=== PATIENT | female | born 1935 | race Hispanic/Latino ===

== ENCOUNTER 2023-01-04 08:59 | Day surgery (SDC) | payer OTHER ==
[~2023-01-04] VITALS: Ht 165.1 cm; Wt 77.1 kg
[2023-01-04] VITALS (14 sets, daily range): BP systolic 88–138; BP diastolic 53–72; PULSE 71–86; RESP 12–20
[~2023-01-04 08:59] MED LIST: 0.9%NACL 1000ML 1,000 ML IV ONE
[2023-01-04] MEDS ORDERED: PROPOFOL 10 MG/ML 20ML VIAL IV ONE (09:59)
== END 2023-01-04 11:45 | disposition home or self-care (01) ==
LOC: DAH 08:59 → ENDO 08:59
PROVIDERS: ATTEND Internal Medicine Gastroenterology
DX: K92.1 Melena (principal); K29.50 Unspecified chronic gastritis without bleeding; R12 Heartburn; R68.81 Early satiety; Z80.9 Family history of malignant neoplasm, unspecified
CPT/HCPCS: 43239; J7030 ×2; J2704; A4620; A4215 ×2; A7002; A4222; A4221; A4663; A4606; J3490

== ENCOUNTER 2023-08-28 11:28 | Emergency (ER) | payer MEDICARE, OTHER ==
[~2023-08-28] VITALS: Ht 160 cm; Wt 72.1 kg
[2023-08-28 12:27] LABS: BASOPHILS # (AUTO) 0.03 K/uL (0.00-0.20); BASOPHILS % (AUTO) 0.4 % (0.0-5.0); EOSINOPHILS # (AUTO) 0.12 K/uL (0.00-0.70); EOSINOPHILS % (AUTO) 1.5 % (0.0-8.0); HEMATOCRIT 39.4 % (36-48); IMMATURE GRANULOCYTE ABSOLUTE 0.02 K/uL (0-1); LYMPHOCYTES # (AUTO) 1.3 K/uL (1.0-4.8); LYMPHOCYTES % (AUTO) 15.2 % (21.0-51.0); MEAN CORPUSCULAR HEMOGLOBIN 27.3 pg (27.0-33.0); MEAN CORPUSCULAR VOLUME 85.3 fL (79-99); MONOCYTES # (AUTO) 0.9 K/uL (0.1-1.0); MONOCYTES % (AUTO) 11.1 % (3.0-13.0); NEUTROPHILS # (AUTO) 5.9 K/uL (1.8-7.7); NEUTROPHILS % (AUTO) 71.6 % (40.0-77.0); PLATELET COUNT (AUTO) 219 K/uL (130-400); RED BLOOD CELL COUNT(AUTO) 4.62 MIL/uL (4.00-5.50); RED CELL DISTRIBUTION WIDTH 15.7 % (11.0-15.5); WHITE BLOOD COUNT (AUTO) 8.2 K/uL (4.8-10.8)
[2023-08-28 12:44] LABS: ALBUMIN 3.4 g/dL (3.5-5.0); BILIRUBIN,TOTAL 1.2 mg/dL (0.2-1.0); CREATININE 0.7 mg/dL (0.5-1.0); POTASSIUM 4.4 mmol/L (3.5-5.1); TOTAL PROTEIN, SERUM 7.6 g/dL (6.0-8.3)
[2023-08-28 13:11] LABS: B-TYPE NATRIURETIC PEPTIDE 284 pg/mL (0-100)
[2023-08-28] MEDS: FUROSEMIDE 40MG VIAL IV ONE (14:24)
[2023-08-28 14:27] LABS: APPEARANCE,URINE CLEAR (CLEAR); BILIRUBIN,URINE NEGATIVE (NEGATIVE); COLOR,URINE LIGHT-YELLOW (YELLOW); GLUCOSE, URINE (UA) NEGATIVE (NEGATIVE); KETONES,URINE NEGATIVE (NEGATIVE); LEUKOCYTE ESTERASE ,URINE 25 Leu/uL (NEGATIVE); NITRATE,URINE NEGATIVE (NEGATIVE); OCCULT BLOOD,URINE NEGATIVE (NEGATIVE); PROTEIN,URINE 10 mg/dL (NEGATIVE); UROBILINOGEN,URINE 0.2 mg/dL (0.2-1.0)
[2023-08-28 14:33] LABS: ADD UA MICROSCOPIC YES
[2023-08-28 14:39] LABS: BACTERIA,URINE RARE /HPF (None Seen); MUCUS,URINE RARE LPF (None Seen); OTHER CASTS, URINE 1 /LPF (None Seen); SQUAMOUS EPITHELIAL CELL,UR RARE /HPF (0-2)
[2023-08-28] MEDS ORDERED: FURO40TA5 PO (14:56)
[2023-08-28] MEDS ORDERED: POTA-192 PO (14:56)
[2023-08-28 14:58] VITALS: BP 144/78; PULSE 83; RESP 18; O2SAT 99
== END 2023-08-28 15:34 | disposition home or self-care (01) ==
LOC: EDH 11:28
DX: I50.9 Heart failure, unspecified (principal); I51.7 Cardiomegaly; Z79.899 Other long term (current) drug therapy; Z98.890 Other specified postprocedural states
CPT/HCPCS: 99285; 96374; 71045; 83735; 84484; 80053; 83880; 85025; 87086; 81001; 36415; 93005; J1940

== ENCOUNTER 2024-03-15 11:26 | Emergency (ER) | payer MEDICARE ==
[~2024-03-15] VITALS: Ht 160 cm; Wt 72.6 kg
[~2024-03-15 11:26] MED LIST changes: -0.9%NACL 1000ML 1,000 ML IV ONE; +FURO40TA5 PO; +POTA-192 PO
[2024-03-15] MEDS ORDERED: AMOX1TAB16 PO (12:09)
--- NOTE | 2024-03-15 12:09 | ERN ---
ED Note History of Present Illness Stated Complaint: BIT BY RAT ON RIGHT FOOT Chief Complaint: Animal Bite Dictation: 89-year-old female presented to the ER after seen animals/rats biting her right toes. As per reports from family there were told by the provided that there was bloody in the patient bed. Allergies: Coded Allergies: No Known Drug Allergies (Unverified Allergy, Unknown, 01/03/23) Home Meds Active Scripts Amoxicillin/Potassium Clav (Amox Tr-K Clv 875-125 mg Tab) 875 Mg-125 Mg Tablet, 1 TAB PO BID for 7 Days, #14 TAB 0 Refills Prov:ANDRE ECHEVARRIA MD 03/15/24 Furosemide (Furosemide) 40 Mg Tablet, 40 MG PO DAILY for 5 Days, #5 TAB Prov:ROBINSON LINCOLN NP 08/28/23 Potassium Chloride (K-Dur/Klor-Con) 20 Meq Ertab, 20 MEQ PO DAILY for 10 Days, #10 TAB.EC Prov:ROBINSON LINCOLN NP 08/28/23 Past Medical History Past Medical History: No Pertinent History Surgical History: Other, None History: Not Applicable Review of System Dictation NEGATIVE EXCEPT PER HPI Constitutional: Negative for fever,chills, and weight loss Eyes: Negative for injury, pain,redness, and discharge ENT: Negative for injury,pain or swelling Cardiovascular: denies chest pain, palpitations, and edema Respiratory: Negative for shortness of breath, cough, and wheezing, Abdomen/GI: Negative for abdominal pain, nausea, vomiting, diarrhea, and constipation Back: Negative for injury and pain : Negative for injury, bleeding and discharge MS/Extremity: Negative for injury and deformity Skin: Left toes positive for Neuro: Negative for headache, weakness, numbness, tingling, and seizure Psych: Negative for suicide ideation, homicidal ideation, and hallucinations Initial Vital Sign VS Vital Signs Date Time Temp Pulse Resp B/P (MAP) Pulse Ox O2 Delivery O2 Flow Rate FiO2 03/15/24 11:59 98.4 83 16 128/86 98 Room Air 03/15/24 12:18 0 21 Physical Exam Dictation General: awake, alert, NAD Head/Face: Normocephalic, atraumatic Eyes: PERRL, EOMI, vision at baseline ENT: oral cavity clear, TMs clear, no signs of infection Neck: Trachea midline, supple, no nuchal rigidity Cardiovascular: RRR, normal S1/S2, No MRGs, no JVD Respiratory: CTAB, no respiratory distress, No rales or wheezes Abdomen: Soft , no tender Skin: Left toe covered with a dry blood. MS/Extremity: Pulses equal, no cyanosis, neurovascular intact, FROM Neuro: COAx4, GCS 15, strength 5/5, CN 2-12 intact, normal cerebellar exam, normal gait, Psych: Normal behavior, mood, and affect normal ED Course ED Course Orders Procedure Category Date Status Time Tetanus,Diphtheria PHA 03/15/24 Complete Tox [Adult] (Diphther 12:30 Current Medications Medications (Trade) Dose Ordered Sig/Ced Route PRN Reason Start Time Stop Time Status Last Admin Dose Admin Tetanus/ Diphtheria Toxoids Adsorbed (DiphthERIA-teTANUS TOXOID [ADULT]/ DECAVAC) 0.5 ml ONCE ONCE IM 03/15/24 12:30 03/15/24 12:31 DC 03/15/24 12:51 Vital Signs Date Time Temp Pulse Resp B/P (MAP) Pulse Ox O2 Delivery O2 Flow Rate FiO2 03/15/24 12:18 98.2 85 16 125/85 98 Room Air* 0 21 03/15/24 11:59 98.4 83 16 128/86 98 Room Air Medical Decision Making MDM 89-year-old female presented with a left toes covered with dry body stated that she saw a rat biting her toes Animal bite 1. Clean the wound 2. Tetanus shot 3. Antibiotic therapy Follow up with the PCP. DX & DISP Disposition: Discharge Departure Impression: Primary Impression: Animal bite Condition: Stable Scripts Amoxicillin/Potassium Clav (Amox Tr-K Clv 875-125 mg Tab) 875 Mg-125 Mg Tablet 1 TAB PO BID for 7 Days, #14 TAB 0 Refills Prov: ANDRE ECHEVARRIA MD 03/15/24 Referrals: CAROL GERMAN (PCP) Time of Disposition: 12:08 ANDRE ECHEVARRIA MD Mar 15, 2024 12:09
--- NOTE | 2024-03-15 12:16 | NUR ---
POLICE NOT NEEDED RAT BITE BOT ANIMAL CONTROL FAMILY WITH PT WILL PLACE POISON AND TRAPS NEEDED
[2024-03-15 12:18] VITALS: BP 125/85; PULSE 85; RESP 16; TEMP 98.3; O2SAT 98
[2024-03-15] MEDS: teTANUS/diphthERIA TOXOID [ADULT] 0.5 ML VIAL IM ONE (12:51)
== END 2024-03-15 13:08 | disposition home or self-care (01) ==
LOC: EDH 11:26
DX: S91.351A Open bite, right foot, initial encounter (principal); Z79.899 Other long term (current) drug therapy; W53.11XA Bitten by rat, initial encounter; Y93.89 Activity, other specified; Y92.89 Other specified places as the place of occurrence of the external cause; Y99.8 Other external cause status
CPT/HCPCS: 90471; 90714; 99283